=== PATIENT | female | born 1965 | race Caucasian/White ===

== ENCOUNTER → 2019-07-15 07:24 | Outpatient (CLI) | payer OTHER, SELFPAY ==
--- NOTE | 2019-07-15 | IMM_PTH ---
PATIENT: MELBA BEST LOC: [facility] U#:[id number] AGE/SX: 59/F ROOM: RE07/15/[address]: Dr. Lisa Rivas MD : 1965 BED: DIS: SPEC #: [id number] RECD: 07/16/19 15:16 STATUS: INGE REQ #: [id number] COLTON: 07/15/19 00:[address]: Lisa Rivas DEPT: IMMUNOHISTOCHEMISTRY RECD BY: Francesca Nova ENTERED: 07/16/19 15:17 SP TYPE: IMMUNO OTHR DR: No Primary Care Phys Tissues: A - Right breast, NOS Procedures: CALPONIN-1 (add) CK8 (add) E-CAD (add) HER2 SUDHAKAR (add) AK (add) P40 (add) ER (initial) PHYSICIAN & INSTITUTION [place] [id number] SPECIMEN INFORMATION: Tissue Source: A - Right breast tissue, upper outer quadrant calcifications Clinical Info: Right breast tissue, upper outer quadrant calcifications Specimen Number: [id number] CPT code: 38393, 52830 x3, 33242 x3 METHODOLOGY: Deparaffinized sections of prefer/formalin-fixed tissue or PAP/DQ stained slides are incubated with monoclonal/polyclonal antibodies/oligonucleotide probes. Localization is made via biotin free immunoperoxidase method. Appropriate controls are performed and reacted as expected. Results on target cell population are indicated in the following table: RESULTS: ANTIBODY / CLONE RESULT Block A1 E-Cad (ECH-6) positive CK8 ([id number]) positive Calponin-1 (LB195F) positive P40 (BC28) positive MORPHOMETRIC ANALYSIS ER (clone 6F11) positive (>95%, strong) AK (clone 16/1E2) positive (~25%, weak intensity) Her-2Neu (clone CB11) negative (1+) The prognostic test for HER2 is performed on formalin-fixed paraffin embedded tissue. A 3+ (positive) staining pattern is defined as intense, homogeneous, complete, circumferential membranous staining in >10% of contiguous tumor cells. A similar weak (2+) staining pattern is interpreted as equivocal. QASIM follow-up testing is recommended for all equivocal cases. Positivity/negativity for ER/AK is reported if > or < 1% of the tumor cells are immuno- reactive, respectively. The ASCO/CAP criteria is used for scoring. Reference: Journal of Clinical Oncology, 2013; 31:8589-1144 & 2010; 16:8079-6277. Duration of fixation: 11.5 Hrs; Sample Adequate: Yes. These assays have not been validated on decalcified tissues. Results should be interpreted with caution given the likelihood of false negativity on decalcified specimens. These tests were developed and their performance characteristics determined by [facility]. They may not have been cleared or approved by the U.S. Food and Drug Administration. The FDA has determined that such clearance or approval is not necessary. INTERPRETATION: Right breast tissue, upper outer quadrant calcifications, stereotactic core biopsy: Ductal carcinoma in situ, nuclear grade 1. SJ:thor 07/17/19
--- NOTE | 2019-07-15 08:00 | BRBX_PTH ---
PATIENT: MELBA BEST LOC: [facility] U#:[id number] AGE/SX: 59/F ROOM: RE07/15/[address]: Dr. Lisa Rivas MD : 1965 BED: DIS: SPEC #: [id number] RECD: 07/15/19 10:54 STATUS: INGE REQ #: [id number] COLTON: 07/15/19 08:[address]: Lisa Rivas DEPT: SURGICAL PATHOLOGY RECD BY: Geovanny Cornell ENTERED: 07/15/19 13:38 SP TYPE: BREAST BX OT DR: No Primary Care Phys Tissues: A - Right breast, NOS B - Right breast, NOS Procedures: Surgery Specimen Level IV HEADER OPERATION: Right stereotactic breast biopsy PRE-OP DIAGNOSIS: Abnormal calcification of right breast TISSUE SUBMITTED: A - Right breast tissue, upper outer quadrant calcifications, B - Right breast tissue, lateral retroareolar calcifications ISCHEMIC TIME: 1 minute FIXATION TIME: 11.5 hours MICROSCOPIC DIAGNOSIS A. Right breast, upper outer quadrant calcifications, stereotactic core biopsy: Ductal carcinoma in situ with the following characteristics: Pattern - cribriform Nuclear Grade - 1/3 Necrosis - not identified Calcifications - present Additional findings - fibrocystic changes and intraductal hyperplasia with focal atypia. See comment. B. Right breast, lateral retroareolar calcifications, stereotactic core biopsy: A minute fragment of benign breast tissue. Fragments of skin, minute fragments of fibroadipose tissue and multiple blood clots. Negative for malignancy. See comment. SJ:thor 07/16/19 COMMENT A. Immunohistochemistry ([id number]) supports the above diagnosis. ER/CA/Stx9ygr studies are being performed on sections of tumor and the results from this study will be reported separately ([id number]). B. Microcalcifications are not seen. Multiple levels are examined. Case has been reviewed in consultation with Dr. Boudreaux who concurs with the above diagnosis. IDC:AM MICROSCOPIC DESCRIPTION Slides are reviewed. GROSS DESCRIPTION A - Received in fixative is one container labeled with the patient's name and designated #1. The specimen consists of multiple elongated fragments of kowalski-yellow fibroadipose tissue that in aggregate measure 2 x 2 x 0.3 cm. The entire specimen is submitted in one cassette. B - Received in fixative are two containers labeled with the patient's name and designated #2. The specimen consists of multiple fragments of blood clot and scant fragments of kowalski-yellow fibroadipose tissue that in aggregate measure 2.5 x 0.5 x 0.1 cm. The specimen is totally submitted in one cassette. Please make note, five plastic devices are received in two containers. / SJ:rg 07/15/19 TC:0 CPT: 31949 x2
--- NOTE | 2019-07-15 08:54 | OP.PCM_ITS ---
Report of Operation Date of Procedure: 07/15/19 Pre-Operative Diagnosis: abnormal calcifications on right breast mammograms Post-Operative Diagnosis: same Surgery/Procedure Performed:: right stereotactic breast biopsies x2 Description of Surgical Findings:: superficial dense breast tissue, more centrally located calcifications - could not obtain - very superficial dense breast tissue Type of Anesthesia:: Local - 1% xylocaine Specimen's removed: right breast tissue x 2 Estimated Blood Loss (mL): < 2 ml Fluids Replaced: none Description of Procedure: After informed consent was given, the patient was brought into the breast biopsy suite. Appropriate time out protocol was followed. She was then placed in the prone position on the stereotactic biopsy table. The patient?s right breast was then placed in the hole at the head of the table. A resident care technician compression mammogram was then obtained. The suspicious radiological lesion was then identified. Stereo pictures of the lesion were then taken for XYZ coordinates. The Mammotome biopsy stylus was then positioned where it would be entering into the patient?s right breast. The skin at this site was then cleansed with a surgical skin preparation. The skin and subcutaneous tissues at this site were then infiltrated with 1% xylocaine. A small skin incision was made with an 11 blade scalpel. The biopsy stylus was then positioned into the patient?s breast at the proper coordinates of depth. Using the Mammotome vacuum-assist device, several core samples of breast tissue were obtained. A specimen mammogram was the obtained and revealed that the suspicious lesion was within the specimen. A hemostatic marker clip was then placed into the biopsy cavity and a resident care technician film revealed that it was properly deployed. The patient was then placed in the supine position and pressure was applied to the breast until no active bleeding was noted. The second suspicious radiological lesion was then identified. Stereo pictures of the lesion were then taken for XYZ coordinates. The Mammotome biopsy stylus was then positioned where it would be entering into the patient?s breast. The skin at this site was then cleansed with a surgical skin preparation. The skin and subcutaneous tissues at this site were then infiltrated with 1% xylocaine. A separate small skin incision was made with an 11 blade scalpel. The biopsy stylus was then positioned into the patient?s breast at the proper coordinates of depth. Using the Mammotome vacuum-assist device, several core samples of breast tissue were obtained. A specimen mammogram was the obtained and revealed that the suspicious lesion was not within the specimen. A hemostatic marker clip was then placed into the biopsy cavity and a resident care technician film revealed that it was properly deployed. Attempts for another biopsy in this area was done with re-targeting for coordinates and reinsertion of the Mammotome device. However, the suspicious calcifications could not be obtained in the specimen. The patient had very dense breast tissue in this area and it was difficult to fire the trocar into this area of dense breast tissue. Therefore, no further attempts were made. The patient was then placed in the supine position and pressure was applied to the breast until no active bleeding was noted. A nylon suture was placed to reapproximated the skin at both sites. A unilateral mammogram in the CC and MLO view were then taken. The patient tolerated the procedure well and was discharged from the breast biopsy suite in good condition. - Complications none noted
--- NOTE | 2019-07-15 09:05 | HP.PCM_ITS ---
History and Physical Date of Admission: 07/15/19 Emma Lainez 1965 ? ? REFERRING PHYSICIAN: Hanna Quezada MD ? CHIEF COMPLAINT: Consult ? HPI: The patient is a 53 year old female presents with abnormal right breast mammograms. Denies palpable breast masses. Denies nipple discharge. Denies overlying skin changes. Denies previous breast biopsies. Denies breast pain. No ovarian or breast cancer known in family. ? Mammograms 07/08/19 IMPRESSION: SUSPICIOUS OF MALIGNANCY The cluster of calcifications in the right breast at 12 o'clock in the retroareolar region is at a moderate suspicion for malignancy. The cluster of calcifications in the right breast at 11 o'clock anterior depth is at an intermediate suspicion for malignancy. ?A biopsy is recommended. ? ? PAST MEDICAL HISTORY ? Atypical squamous cell changes of undetermined significance (ASCUS) on cervical cytology with positive high risk human papilloma virus (HPV) 2015, 2018 ? HPV (human papilloma virus) infection 2015 ? high risk HPV + test ? Trichomonal cervicitis 2015 ? PAST SURGICAL HISTORY ? VAGINOSCOPY ? 06/14/2016,12/26/2018 ? low grade ? ? MEDICATIONS: Denies ? ALLERGIES: Patient has no known allergies. ? PERSONAL HISTORY: Social History Socioeconomic History Marital status: Spouse name: Ramirez Lainez Number of children: 4 Years of education: 8 Highest education level: Not on file Occupational History Occupation: Homemaker Tobacco Use Smoking status: Never Smoker Smokeless tobacco: Never Used Substance and Sexual Activity Alcohol use: No Drug use: No Sexual activity: Yes Partners: Male control/protection: Vasectomy ? FAMILY HISTORY ? Hypertension Mother ? ? Heart Mother ? ? Open heart surgery ? ? REVIEW OF SYSTEMS: General - denies fevers, denies anorexia, denies weight loss Cardiovascular - denies chest pain, denies history of HI Pulmonary - denies shortness of breath, denies coughing up blood Gastrointestinal - denies abdominal pain, denies hematemesis, denies blood in stools Neurological - denies seizures, denies chronic numbness/weakness of extremities, denies chronic headaches Genitourinary - denies burning with urination, denies blood in urine Hematological - denies spontaneous/prolonged bleeding Skin - denies nonhealing skin wounds Musculoskeletal - denies chronic joint/back pain Endocrine - denies diabetes, no thyroid problems Psychological ? denies hallucinations Obstetrical - menarche onset at age 14, , first at age 26, breast feeding 4y, denies exogenous hormones use, irregular menstrual periods presently - last menstrual period March ? PHYSICAL EXAMINATION: General: The patient is 53 year old female, well nourished, well hydrated in no acute distress. The patient is oriented to time, place, and person. VITALS: Blood pressure 118/70, pulse 81, temperature 36.4 ?C (97.5 ?F), temperature source Temporal Artery, height 154.9 cm (5' 1), weight 48.2 kg (106 lb 3.2 oz), SpO2 100 %. Body mass index is 20.07 kg/m?. Head ? Normocephalic. EOM intact with sclera clear and no icterus noted. Mouth with mucus membranes moist. Neck - supple with no jugular venous distention noted. Trachea is midline. No carotid bruits noted. No thyroid enlargement or thyroid nodules detected. No masses noted. Chest/breast ? no asymmetry of breasts noted, no suspicious skin lesions noted, no nipple discharge and both nipples everted, dense breast tissue bilaterally, no suspicious breast masses noted Lungs ? clear to auscultation. Normal breath sounds. No rales/rhonchi/wheezing noted. No labored breathing noted, such as retractions. No cough heard. Heart ? normal S1 and S2 auscultated. No rubs/clicks/murmurs noted. Regular rate. Abdomen ? soft and benign. Normal bowel sounds. No abdominal bruits noted. No distention noted. No masses noted. Extremities ? no calf tenderness noted. No pitting edema noted. Skin ? normal skin integrity. Lymph ? no cervical adenopathy detected, no supraclavicular adenopathy detected, no axillary adenopathy detected Neurological ? gait normal, no focal deficits noted. Psych ? calm and appropriate RADIOLOGIC STUDIES: As Noted ? IMPRESSION: abnormal mammographic calcifications x 2 areas ? PLAN: I have discussed the above with the patient. I have reviewed the mammograms with her. I have explained that the next step to rule out breast neoplasia is to proceed with needle core breast biopsies. This can be done in the form of a stereotactic breast biopsy, that is, using m ammographic guidance to obtain breast tissue to correlate with the abnormal lesions seen on mammograms. I have explained the procedure to the patient. I have counseled the patient as to the risks of the procedure, including but not limited to: infection, bleeding, injury to any blood vessels/nerves, scar tissue, inability to obtain appropriate biopsies, wound infections, complications of anesthesia, etc. ? the patient understands. The patient wishes to proceed. I have answered all questions to the patient?s satisfaction and the patient has no further questions. ? Diagnoses: (R92.8) Abnormal mammogram of right breast (primary encounter diagnosis) Return to Clinic: The patient is instructed to follow-up with me after the procedure
== END ==
PROVIDERS: Referring Provider Surgery; Visit Provider Surgery
DX: D05.11 Intraductal carcinoma in situ of right breast (principal); N60.11 Diffuse cystic mastopathy of right breast
CPT/HCPCS: 19081; 19082; 88305; 88341; 88342; J7050